=== PATIENT | male | born 1955 | race Caucasian/White ===

== ENCOUNTER 2020-12-02 15:53 | Emergency (ER) | payer OTHER ==
[~2020-12-02] VITALS: Ht 162.6 cm; Wt 63.5 kg
[2020-12-02 16:21] VITALS: BP 122/86
--- NOTE | 2020-12-02 16:38 | NUR ---
PATIENT AMBULATED TO ER BED 08 ACCOMPANIED BY FAMILY MEMBER
--- NOTE | 2020-12-02 16:38 | NUR ---
Mitchell valle in [facility] - 12/02/20 at 1639 by [email or web address] PT AMB TO BED 7
[2020-12-02] MEDS ORDERED: GABA300C PO (16:51)
--- NOTE | 2020-12-02 16:51 | NUR ---
64 Y/O M BIB SPOUSE FROM HOME, PATIENT PRESENTS TO ED WITH RUQ ABD PAIN FOR 10 DAYS. PT STATES HE WAS JUST SEEN AT [facility] TODAY THIS AM FOR SHINGLES. DENIES N/V/D; SKIN IS PINK/WARM/DRY; AAOX4 WITH EVEN AND STEADY GAIT; LUNGS CLEAR BL; HR EVEN AND REGULAR; PT DENIES ANY FEVER, CP, SOB, OR COUGH AT THIS TIME; PATIENT STATES PAIN OF 10/10 AT THIS TIME; VSS; PATIENT POSITIONED FOR COMFORT; HOB ELEVATED; BEDRAILS UP X2; BED DOWN. ER MD MADE AWARE OF PT STATUS. PMH: LATASHA WASHINGTON
[2020-12-02 16:59] VITALS: BP 122/86
--- NOTE | 2020-12-02 16:59 | NUR ---
Patient discharged with v/s stable. Written and verbal after care instructions given and explained. Patient alert, oriented and verbalized understanding of instructions. Carried with steady gait. All questions addressed prior to discharge. ID band removed. Patient advised to follow up with PMD. Rx of GABAPENTIN given. Patient educated on indication of medication including possible reaction and side effects. Opportunity to ask questions provided and answered.
== END 2020-12-02 16:59 | disposition home or self-care (01) ==
LOC: MED 15:53
DX: B02.29 Other postherpetic nervous system involvement (principal); B02.9 Zoster without complications; E11.9 Type 2 diabetes mellitus without complications; Z79.899 Other long term (current) drug therapy
CPT/HCPCS: 99283